=== PATIENT | female | born 1955 | race Caucasian/White ===

== ENCOUNTER 2017-06-05 19:34 | Emergency (ER) | payer OTHER ==
[2017-06-05 19:49] VITALS: BP 138/84
== END 2017-06-05 22:35 | disposition left against medical advice (07) ==
LOC: ED 19:34
DX: Z53.21 Procedure and treatment not carried out due to patient leaving prior to being seen by health care provider (principal)

== ENCOUNTER 2018-05-30 21:53 | Emergency (ER) | payer OTHER ==
[~2018-05-30] VITALS: Ht 165.1 cm; Wt 107.0 kg
[2018-05-30 21:59] VITALS: Ht 165.1 cm; Wt 107.0 kg
[2018-05-30 22:51] LABS: BASOPHIL % 0.5 % (0-2); PLATELET COUNT 197 x10^3mcL (130-400); RED CELL DISTRIBUTION WIDTH 14.3 % (11.5-14.5)
[2018-05-30 22:56] LABS: CALCIUM 8.9 mg/dL (8.5-10.1); CARBON DIOXIDE 29.9 mmol/L (21-32); CREATININE SERUM 1.4 mg/dL (0.6-1.0); POTASSIUM SERUM 4.2 mmol/L (3.5-5.1)
[2018-05-30 23:01] LABS: BILIRUBIN TOTAL 0.22 mg/dL (0.20-1.00); TOTAL PROTEIN, SERUM 6.6 g/dL (6.4-8.2)
[2018-05-30 23:07] LABS: ALBUMIN 3.3 g/dL (3.4-5.0)
[2018-05-31 00:33] VITALS: BP 130/84
== END 2018-05-31 00:33 | disposition home or self-care (01) ==
LOC: ED 21:53
PROVIDERS: Emergency Medicine
DX: N93.8 Other specified abnormal uterine and vaginal bleeding (principal); R10.2 Pelvic and perineal pain; I11.0 Hypertensive heart disease with heart failure; I50.9 Heart failure, unspecified; E78.00 Pure hypercholesterolemia, unspecified; I48.91 Unspecified atrial fibrillation; Z98.890 Other specified postprocedural states; Z88.5 Allergy status to narcotic agent
CPT/HCPCS: 83880; J2270; J2405

== ENCOUNTER 2018-07-05 06:39 | Day surgery (SDC) | payer OTHER ==
[~2018-07-05] VITALS: Ht 165.1 cm; Wt 102.0 kg
[2018-07-05 07:22] VITALS: BP 134/86
[2018-07-05 11:59] VITALS: BP 134/83
== END 2018-07-05 11:50 | disposition home or self-care (01) ==
LOC: DS 06:39
DX: N84.0 Polyp of corpus uteri (principal); I13.0 Hypertensive heart and chronic kidney disease with heart failure and stage 1 through stage 4 chronic kidney disease, or unspecified chronic kidney disease; N18.2 Chronic kidney disease, stage 2 (mild); I50.9 Heart failure, unspecified; J44.9 Chronic obstructive pulmonary disease, unspecified; E66.9 Obesity, unspecified; Z68.35 Body mass index [BMI] 35.0-35.9, adult; Z98.51 Tubal ligation status; Z88.5 Allergy status to narcotic agent; Z98.890 Other specified postprocedural states; Z79.899 Other long term (current) drug therapy
CPT/HCPCS: J1170; J2250; J2405; J2704; J3010; J7030; J7120